=== PATIENT | female | born 1985 | race African-American/Black ===

== ENCOUNTER 2018-03-11 15:54 | Emergency (ER) | payer MEDICAID, OTHER ==
[~2018-03-11] VITALS: Ht 149.9 cm; Wt 88.9 kg
[2018-03-11 16:05] VITALS: BP 160/89
== END 2018-03-11 18:15 | disposition home or self-care (01) ==
LOC: ER 15:58
DX: E11.65 Type 2 diabetes mellitus with hyperglycemia (principal); R22.9 Localized swelling, mass and lump, unspecified; Z79.4 Long term (current) use of insulin
CPT/HCPCS: 82962